=== PATIENT | female | born 1940 | race Caucasian/White ===

== ENCOUNTER 2022-12-15 12:40 | Outpatient (CLI) | payer MEDICARE ==
[~2022-12-15 12:40] MED LIST: Magnevist 469MG/ML 20 ML VIAL ONE
== END 2022-12-15 12:41 | disposition home or self-care (01) ==
LOC: CSHMRI 12:40
PROVIDERS: ATTEND Otolaryngology Plastic Surgery within the Head & Neck
DX: H61.21 Impacted cerumen, right ear (principal); I67.9 Cerebrovascular disease, unspecified
CPT/HCPCS: 70553; 82565; A9579